=== PATIENT | male | born 1985 | race Hispanic/Latino ===

== ENCOUNTER 2016-10-23 11:31 | Emergency (ER) | payer SELFPAY | END 2016-10-23 12:04 | disposition home or self-care (01) | LOC: NAV ERS 11:31 | DX: Z20.2 Contact with and (suspected) exposure to infections with a predominantly sexual mode of transmission (principal) | CPT/HCPCS: 99282 ==

== ENCOUNTER 2017-05-09 20:58 | Emergency (ER) | payer SELFPAY ==
[2017-05-09] MEDS ORDERED: Adacel (T-DAP) 0.5 ML VIAL ONE (21:14)
[2017-05-09] MEDS ORDERED: Cephalexin 250 MG CAP ONE (21:26)
== END 2017-05-09 21:35 | disposition home or self-care (01) ==
LOC: NAV ERS 20:58
DX: S91.332A Puncture wound without foreign body, left foot, initial encounter (principal); J06.9 Acute upper respiratory infection, unspecified; W45.0XXA Nail entering through skin, initial encounter
CPT/HCPCS: 90471; 90715

== ENCOUNTER 2020-08-21 20:02 | Emergency (ER) | payer SELFPAY | END 2020-08-21 20:29 | disposition home or self-care (01) | LOC: NAV ERS 20:02 | DX: R10.30 Lower abdominal pain, unspecified (principal) | CPT/HCPCS: 99281 ==